=== PATIENT | male | born 1930 | race Caucasian/White ===

== ENCOUNTER 2018-08-17 19:34 | Inpatient (IN) ==
[2018-08-17] MEDS ORDERED: ONDANSETRON 4 MG/2 ML VIAL IV STA (20:06)
[2018-08-17] MEDS ORDERED: ASPIRIN 300 MG SUPP RECTAL STA (20:06)
[2018-08-17] MEDS ORDERED: DILTIAZEM 50 MG/10 ML VIAL IV STA (20:06)
[2018-08-17] MEDS ORDERED: DILTIAZEM INJ 100 MG in SODIUM CHLORIDE 0.9% 100 ML IV SCH ×2 (20:30→22:00)
[2018-08-17 20:37] LABS: Basophils # 0.1 10*3/uL (0.0-0.2); Basophils % 0.6 % (0.0-0.8); Eosinophils # 0.1 10*3/uL (0.0-0.87); Eosinophils % 1.1 % (0.00-10.9); Hematocrit 50.8 VOL% (42.0-52.0); Hemoglobin 17.8 GM/DL (14.0-18.0); Immature Granulocytes % 0.5 %; Immature Granulocytes Absolute 0.07 #; Lymphocytes # 2.1 10*3/uL (1.4-4.0); Lymphocytes % 16.1 % (21.2-54.2); Mean Corpuscular Hemoglobin 32 PG (27-34); Mean Corpuscular Volume 92.5 FL (87-102); Mean Platelet Volume 9.4 FL (9.6-12.0); Monocytes # 0.9 10*3/uL (0.11-0.8); Neutrophils # 9.6 10*3/uL (1.4-7.4); Neutrophils % 74.7 % (38.7-73.9); Platelet Count 196 T/CUMM (130-400); Red Blood Count 5.49 MC/CUMM (3.8-5.5); Red Cell Distribution Width 12.7 % (9.3-17.3); White Blood Count 12.9 T/CUMM (4-12)
[2018-08-17] MEDS ORDERED: DILTIAZEM 25 MG/5 ML VIAL IV ONE (20:39)
[2018-08-17 20:44] LABS: Apearance,Urine CLEAR (Clear); Bilirubin,Urine Negative (Negative); Blood, Urine Small mg/dL (Negative); Glucose,Urine (UA) Negative (Negative); Ketones,Urine 5 mg/dL (Negative); Nitrite,Urine Negative (Negative); Protein,Urine 30 MG/DL; RBC,Urine 1 /HPF (0-4); Urine Color Straw (Yellow); Urine Specific Gravity 1.008 (1.001-1.035); Urine Urobilinogen < 2.0 EU/DL (0.2-1.0); WBC,Urine <1 /HPF (0-6)
[2018-08-17 20:53] LABS: INR 1.2; PT Patient Result 12.2 SECS; Partial Thromboplastin Time 24.7 SECS (0-40)
[2018-08-17 20:55] LABS: Barbiturates Screen,Urine Negative (Negative); Benzodiazepines Screen,Urine Negative (Negative); Cannabinoid Screen,Urine Negative (Negative); Opiate Screen,Urine Negative (Negative); Phencyclidine Screen,Urine Negative (Negative)
[2018-08-17 21:05] LABS: Alanine Aminotransferase 26 U/L (16-61); Alkaline Phosphatase 65 U/L (45-117); Aspartate Amino Transferase 20 U/L (0-37); Blood Urea Nitrogen 12 MG/DL (7-18); Calcium 9.2 MG/DL (8.5-10.1); Glucose 114 MG/DL (74-106); Osmolality,Calculated 281.3 MOS/KG (273-304); Potassium 3.7 MMOL/L (3.5-5.1); Sodium 141 MMOL/L (136-145); Total Protein 7.2 G/DL (6.4-8.3)
[2018-08-17] MEDS ORDERED: MORPHINE 4 MG/1 ML VIAL IV PRN (21:55)
[2018-08-17] MEDS ORDERED: ZALEPLON 5 MG CAPSULE PO PRN (21:55)
[2018-08-17] MEDS ORDERED: diphenhydrAMINE CAP 25 MG CAPSULE PO PRN (21:55)
[2018-08-17] MEDS ORDERED: ONDANSETRON 4 MG/2 ML VIAL IV PRN (21:55)
[2018-08-17] MEDS ORDERED: ACETAMINOPHEN 325 MG TABLET PO PRN (21:55)
[2018-08-17] MEDS ORDERED: PROMETHAZINE 25 MG/1 ML VIAL IM PRN (21:55)
[2018-08-17] MEDS ORDERED: NICOTINE 21 MG/24 HR PATCH TRANSDERM PRN (21:55)
[2018-08-17] MEDS ORDERED: LACTULOSE 20 GM/30 ML UDCUP PO PRN (21:55)
[2018-08-17] MEDS ORDERED: ENOXAPARIN 40 MG/0.4 ML SYRINGE SUBCUT SCH ×2 (22:00→22:30)
[2018-08-17] MEDS ORDERED: ENOXAPARIN 100 MG/ML SYRINGE SUBCUT STA (22:07)
[2018-08-17] MEDS ORDERED: ENOXAPARIN 80 MG/0.8 ML SYRINGE SUBCUT SCH (23:00)
[2018-08-17] MEDS: SODIUM CHLORIDE 0.9% 1,000 ML IV SCH (23:45)
[2018-08-18 01:27] LABS: Basophils # 0.1 10*3/uL (0.0-0.2); Basophils % 0.8 % (0.0-0.8); Eosinophils # 0.2 10*3/uL (0.0-0.87); Eosinophils % 1.2 % (0.00-10.9); Hematocrit 50.9 VOL% (42.0-52.0); Hemoglobin 17.6 GM/DL (14.0-18.0); Immature Granulocytes % 0.7 %; Lymphocytes # 4.3 10*3/uL (1.4-4.0); Lymphocytes % 29.9 % (21.2-54.2); Mean Corpuscular HGB Conc 34.6 GM/DL (32-36); Mean Corpuscular Hemoglobin 32 PG (27-34); Mean Corpuscular Volume 93.6 FL (87-102); Mean Platelet Volume 10.4 FL (9.6-12.0); Monocytes # 1.3 10*3/uL (0.11-0.8); Monocytes % 8.8 % (1.7-12.7); Neutrophils # 8.5 10*3/uL (1.4-7.4); Neutrophils % 58.6 % (38.7-73.9); Platelet Count 240 T/CUMM (130-400); Red Blood Count 5.44 MC/CUMM (3.8-5.5); White Blood Count 14.4 T/CUMM (4-12)
[2018-08-18 03:32] LABS: Albumin 3.6 G/DL (3.4-5.0); Bilirubin,Total 0.9 MG/DL (0.2-1.0); Calcium 9.1 MG/DL (8.5-10.1); Total Protein 6.9 G/DL (6.4-8.3)
[2018-08-18 03:33] LABS: Osmolality,Calculated 281.1 MOS/KG (273-304); Potassium 3.5 MMOL/L (3.5-5.1)
[2018-08-18 04:00] LABS: Risk Ratio 4.36; Thyroid Stimulating Hormone 3.69 uIU/ml (0.358-3.74); VLDL CHOLESTEROL 20.8 MG/DL
[2018-08-18 04:04] LABS: Troponin I 0.22 NG/ML (0.00-0.045)
[2018-08-18] MEDS ORDERED: ATORVASTATIN 40 MG TABLET PO SCH (09:00)
[2018-08-18] MEDS ORDERED: ASPIRIN EC 81 MG TABLET PO SCH (09:00)
[2018-08-18] MEDS: APIXABAN 5 MG TABLET PO SCH ×2 (11:25→20:41)
[2018-08-18] MEDS: PANTOPRAZOLE 40 MG TABLET PO SCH (11:26)
[2018-08-18] MEDS: ATORVASTATIN 20 MG TABLET PO SCH (11:27)
[2018-08-18] MEDS: SODIUM CHLORIDE 0.9% 1,000 ML IV SCH (11:34)
[2018-08-18 12:19] LABS: Troponin I 0.081 NG/ML (0.00-0.045)
[2018-08-18] MEDS ORDERED: dilTIAZem Drip 125 MG/125 ML PREMIX IV SCH (12:30)
[2018-08-18] MEDS: TAMSULOSIN 0.4 MG CAPSULE PO SCH (15:45)
[2018-08-18] MEDS: PHENAZOPYRIDINE 95 MG TABLET PO SCH (16:22)
[2018-08-18] MEDS: MELATONIN 3 MG TABLET PO SCH (20:41)
[2018-08-19] MEDS: SODIUM CHLORIDE 0.9% 1,000 ML IV SCH (04:46)
[2018-08-19] MEDS: PANTOPRAZOLE 40 MG TABLET PO SCH (09:26)
[2018-08-19] MEDS: APIXABAN 5 MG TABLET PO SCH ×2 (09:27→21:29)
[2018-08-19] MEDS: PHENAZOPYRIDINE 95 MG TABLET PO SCH ×2 (09:27→17:37)
[2018-08-19] MEDS: DILTIAZEM CD 120 MG CAPSULE PO SCH (09:27)
[2018-08-19] MEDS: TAMSULOSIN 0.4 MG CAPSULE PO SCH (09:27)
[2018-08-19] MEDS: ATORVASTATIN 20 MG TABLET PO SCH (10:31)
[2018-08-19] MEDS: MELATONIN 3 MG TABLET PO SCH (21:29)
[2018-08-20 08:26] VITALS: BP 139/67
[2018-08-20] MEDS: DILTIAZEM CD 120 MG CAPSULE PO SCH (10:13)
[2018-08-20] MEDS: TAMSULOSIN 0.4 MG CAPSULE PO SCH (10:13)
[2018-08-20] MEDS: PANTOPRAZOLE 40 MG TABLET PO SCH (10:14)
[2018-08-20] MEDS: ATORVASTATIN 20 MG TABLET PO SCH (10:14)
[2018-08-20] MEDS: APIXABAN 5 MG TABLET PO SCH (10:14)
== END 2018-08-20 11:43 | DRG 65 ==
LOC: EDBD → EDUNIT# → N.ED 19:34 → N.EDINP 21:55 → SUATTDRO 21:55 → N.TELES 22:54
PROVIDERS: ADMIT Internal Medicine; ATTEND Hospitalist

== ENCOUNTER 2018-12-14 15:52 | Inpatient (IN) ==
[2018-12-14] MEDS ORDERED: DILTIAZEM 50 MG/10 ML VIAL IV STA (16:50)
[2018-12-14] MEDS: dilTIAZem Drip 125 MG/125 ML PREMIX IV SCH (17:07)
[2018-12-14 17:10] LABS: Albumin 3.7 G/DL (3.4-5.0); Bilirubin,Total 1.1 MG/DL (0.2-1.0); Calcium 8.8 MG/DL (8.5-10.1); Osmolality,Calculated 277.4 MOS/KG (273-304); Total Protein 6.8 G/DL (6.4-8.3)
[2018-12-14] MEDS ORDERED: LEVOFLOXACIN INJ 500 MG in PREMIX 1 EACH IV STA (17:37)
[2018-12-14] MEDS ORDERED: ACETAMINOPHEN 325 MG TABLET PO PRN (18:27)
[2018-12-14 20:19] LABS: Basophils # 0.1 10*3/uL (0.0-0.2); Basophils % 0.8 % (0.0-0.8); Eosinophils # 0.2 10*3/uL (0.0-0.87); Eosinophils % 1.8 % (0.00-10.9); Hematocrit 46.7 VOL% (42.0-52.0); Hemoglobin 15.4 GM/DL (14.0-18.0); Immature Granulocytes % 0.4 %; Immature Granulocytes Absolute 0.04 #; Lymphocytes # 3.7 10*3/uL (1.4-4.0); Lymphocytes % 32.9 % (21.2-54.2); Mean Corpuscular Hemoglobin 32 PG (27-34); Mean Corpuscular Volume 96.5 FL (87-102); Monocytes # 1.2 10*3/uL (0.11-0.8); Monocytes % 10.7 % (1.7-12.7); Neutrophils % 53.4 % (38.7-73.9); Platelet Count 207 T/CUMM (130-400); Red Blood Count 4.84 MC/CUMM (3.8-5.5); Red Cell Distribution Width 13.2 % (9.3-17.3); White Blood Count 11.2 T/CUMM (4-12)
[2018-12-14] MEDS: APIXABAN 5 MG TABLET PO SCH (21:07)
[2018-12-14] MEDS: ATORVASTATIN 80 MG TABLET PO SCH (21:07)
[2018-12-14] MEDS: MELATONIN 3 MG TABLET PO SCH (21:07)
[2018-12-15 01:12] LABS: Apearance,Urine CLEAR (Clear); Bilirubin,Urine Negative (Negative); Blood, Urine Small mg/dL (Negative); Glucose,Urine (UA) Negative (Negative); Ketones,Urine 5 mg/dL (Negative); Mucus,Urine Occasional /LPF (Occasional); Nitrite,Urine Negative (Negative); Protein,Urine Negative; RBC,Urine 1 /HPF (0-4); Urine Color Yellow (Yellow); Urine Specific Gravity 1.013 (1.001-1.035); Urine Urobilinogen < 2.0 EU/DL (0.2-1.0); WBC,Urine 5 /HPF (0-6)
[2018-12-15 04:06] LABS: Basophils # 0.1 10*3/uL (0.0-0.2); Basophils % 0.6 % (0.0-0.8); Eosinophils # 0.3 10*3/uL (0.0-0.87); Hematocrit 44.8 VOL% (42.0-52.0); Hemoglobin 14.6 GM/DL (14.0-18.0); Immature Granulocytes % 0.3 %; Immature Granulocytes Absolute 0.03 #; Lymphocytes # 3.4 10*3/uL (1.4-4.0); Lymphocytes % 36.2 % (21.2-54.2); Mean Corpuscular HGB Conc 32.6 GM/DL (32-36); Mean Corpuscular Hemoglobin 31 PG (27-34); Mean Corpuscular Volume 95.9 FL (87-102); Mean Platelet Volume 10.2 FL (9.6-12.0); Monocytes # 1.1 10*3/uL (0.11-0.8); Neutrophils # 4.5 10*3/uL (1.4-7.4); Neutrophils % 47.9 % (38.7-73.9); Platelet Count 191 T/CUMM (130-400); Red Blood Count 4.67 MC/CUMM (3.8-5.5); Red Cell Distribution Width 13.2 % (9.3-17.3); White Blood Count 9.4 T/CUMM (4-12)
[2018-12-15 04:28] LABS: Calcium 8.5 MG/DL (8.5-10.1); Osmolality,Calculated 279.3 MOS/KG (273-304); Risk Ratio 2.5; Thyroid Stimulating Hormone 4.51 uIU/ml (0.358-3.74); VLDL CHOLESTEROL 12.8 MG/DL
[2018-12-15] MEDS: APIXABAN 5 MG TABLET PO SCH ×2 (08:38→21:56)
[2018-12-15] MEDS: TAMSULOSIN 0.4 MG CAPSULE PO SCH (08:38)
[2018-12-15] MEDS ORDERED: FUROSEMIDE 40 MG/4 ML VIAL IV ONE (11:35)
[2018-12-15] MEDS ORDERED: POTASSIUM CHLORIDE 20 MEQ TABLET PO ONE (11:35)
[2018-12-15] MEDS: DILTIAZEM CD 120 MG CAPSULE PO SCH (12:03)
[2018-12-15] MEDS: LEVOFLOXACIN INJ 750 MG in PREMIX 1 EACH IV SCH (18:13)
[2018-12-15] MEDS ORDERED: ZALEPLON 5 MG CAPSULE PO PRN (20:09)
[2018-12-15] MEDS: ATORVASTATIN 80 MG TABLET PO SCH (21:56)
[2018-12-15] MEDS: METOPROLOL TARTRATE 25 MG TABLET PO SCH (21:56)
[2018-12-15] MEDS: MELATONIN 3 MG TABLET PO SCH (21:56)
[2018-12-16 03:13] LABS: Basophils # 0.1 10*3/uL (0.0-0.2); Basophils % 0.5 % (0.0-0.8); Eosinophils # 0.2 10*3/uL (0.0-0.87); Eosinophils % 2.2 % (0.00-10.9); Hematocrit 45.5 VOL% (42.0-52.0); Hemoglobin 15.1 GM/DL (14.0-18.0); Immature Granulocytes % 0.5 %; Immature Granulocytes Absolute 0.05 #; Lymphocytes # 2.9 10*3/uL (1.4-4.0); Lymphocytes % 26.2 % (21.2-54.2); Mean Corpuscular HGB Conc 33.2 GM/DL (32-36); Mean Corpuscular Hemoglobin 32 PG (27-34); Mean Corpuscular Volume 95.8 FL (87-102); Mean Platelet Volume 10.2 FL (9.6-12.0); Monocytes # 1.2 10*3/uL (0.11-0.8); Monocytes % 10.8 % (1.7-12.7); Neutrophils # 6.6 10*3/uL (1.4-7.4); Neutrophils % 59.8 % (38.7-73.9); Platelet Count 197 T/CUMM (130-400); Red Blood Count 4.75 MC/CUMM (3.8-5.5); Red Cell Distribution Width 13.2 % (9.3-17.3); White Blood Count 11.1 T/CUMM (4-12)
[2018-12-16 03:29] LABS: Calcium 8.8 MG/DL (8.5-10.1); Osmolality,Calculated 282.1 MOS/KG (273-304); Potassium 3.9 MMOL/L (3.5-5.1)
[2018-12-16] MEDS: DILTIAZEM CD 120 MG CAPSULE PO SCH (10:06)
[2018-12-16] MEDS: APIXABAN 5 MG TABLET PO SCH ×2 (10:06→21:14)
[2018-12-16] MEDS: TAMSULOSIN 0.4 MG CAPSULE PO SCH (10:07)
[2018-12-16] MEDS ORDERED: SODIUM CHLORIDE 0.9% 1,000 ML IV SCH (11:00)
[2018-12-16] MEDS: METOPROLOL TARTRATE 25 MG TABLET PO SCH ×2 (13:31→21:16)
[2018-12-16] MEDS: LEVOFLOXACIN INJ 750 MG in PREMIX 1 EACH IV SCH (17:27)
[2018-12-16] MEDS: ATORVASTATIN 80 MG TABLET PO SCH (21:16)
[2018-12-16] MEDS: MELATONIN 3 MG TABLET PO SCH (21:16)
[2018-12-17] MEDS: dilTIAZem Drip 125 MG/125 ML PREMIX IV SCH (03:27)
[2018-12-17 05:18] LABS: Basophils # 0.1 10*3/uL (0.0-0.2); Basophils % 0.7 % (0.0-0.8); Eosinophils # 0.4 10*3/uL (0.0-0.87); Hematocrit 44.6 VOL% (42.0-52.0); Immature Granulocytes % 0.4 %; Immature Granulocytes Absolute 0.05 #; Lymphocytes % 34.2 % (21.2-54.2); Mean Corpuscular HGB Conc 33.6 GM/DL (32-36); Mean Corpuscular Hemoglobin 32 PG (27-34); Mean Corpuscular Volume 95.3 FL (87-102); Mean Platelet Volume 10.4 FL (9.6-12.0); Monocytes # 1.2 10*3/uL (0.11-0.8); Monocytes % 9.9 % (1.7-12.7); Neutrophils % 51.8 % (38.7-73.9); Platelet Count 191 T/CUMM (130-400); Red Blood Count 4.68 MC/CUMM (3.8-5.5); Red Cell Distribution Width 13.3 % (9.3-17.3); White Blood Count 11.6 T/CUMM (4-12)
[2018-12-17 05:47] LABS: Calcium 8.6 MG/DL (8.5-10.1); Osmolality,Calculated 284.1 MOS/KG (273-304); Potassium 3.8 MMOL/L (3.5-5.1)
[2018-12-17] MEDS: TAMSULOSIN 0.4 MG CAPSULE PO SCH (09:32)
[2018-12-17] MEDS: METOPROLOL TARTRATE 25 MG TABLET PO SCH ×2 (09:32→21:28)
[2018-12-17] MEDS: APIXABAN 5 MG TABLET PO SCH ×2 (09:32→21:27)
[2018-12-17] MEDS: DILTIAZEM CD 120 MG CAPSULE PO SCH (11:46)
[2018-12-17] MEDS ORDERED: FUROSEMIDE 40 MG/4 ML VIAL IV ONE (15:57)
[2018-12-17] MEDS: ALBUTEROL 1.25 MG/3 ML NEB RESP TX SCH ×2 (16:09→19:45)
[2018-12-17] MEDS: LEVOFLOXACIN INJ 750 MG in PREMIX 1 EACH IV SCH (17:51)
[2018-12-17] MEDS: CITALOPRAM 20 MG TABLET PO SCH (21:26)
[2018-12-17] MEDS: MELATONIN 3 MG TABLET PO SCH (21:27)
[2018-12-17] MEDS: ATORVASTATIN 80 MG TABLET PO SCH (21:27)
[2018-12-18] MEDS: ALBUTEROL 1.25 MG/3 ML NEB RESP TX SCH ×4 (01:27→19:42)
[2018-12-18] MEDS: DILTIAZEM CD 120 MG CAPSULE PO SCH (08:10)
[2018-12-18] MEDS: APIXABAN 5 MG TABLET PO SCH ×2 (08:11→21:29)
[2018-12-18] MEDS: METOPROLOL TARTRATE 25 MG TABLET PO SCH ×2 (08:11→21:29)
[2018-12-18] MEDS: TAMSULOSIN 0.4 MG CAPSULE PO SCH (08:11)
[2018-12-18] MEDS: LEVOFLOXACIN INJ 750 MG in PREMIX 1 EACH IV SCH (17:05)
[2018-12-18] MEDS: ATORVASTATIN 80 MG TABLET PO SCH (21:29)
[2018-12-18] MEDS: CITALOPRAM 20 MG TABLET PO SCH (21:29)
[2018-12-18] MEDS: MELATONIN 3 MG TABLET PO SCH (21:29)
[2018-12-19] MEDS: ALBUTEROL 1.25 MG/3 ML NEB RESP TX SCH ×4 (00:26→19:16)
[2018-12-19] MEDS: TAMSULOSIN 0.4 MG CAPSULE PO SCH (08:55)
[2018-12-19] MEDS: METOPROLOL TARTRATE 25 MG TABLET PO SCH ×2 (08:55→20:45)
[2018-12-19] MEDS: APIXABAN 5 MG TABLET PO SCH ×2 (08:55→20:45)
[2018-12-19] MEDS: DILTIAZEM CD 120 MG CAPSULE PO SCH (08:55)
[2018-12-19] MEDS: LEVOFLOXACIN INJ 750 MG in PREMIX 1 EACH IV SCH (17:46)
[2018-12-19] MEDS: MELATONIN 3 MG TABLET PO SCH (20:45)
[2018-12-19] MEDS: CITALOPRAM 20 MG TABLET PO SCH (20:45)
[2018-12-19] MEDS: ATORVASTATIN 80 MG TABLET PO SCH (20:45)
[2018-12-20] MEDS: ALBUTEROL 1.25 MG/3 ML NEB RESP TX SCH ×4 (01:59→19:45)
[2018-12-20] MEDS: APIXABAN 5 MG TABLET PO SCH (09:39)
[2018-12-20] MEDS: TAMSULOSIN 0.4 MG CAPSULE PO SCH (09:39)
[2018-12-20] MEDS ORDERED: FUROSEMIDE 20 MG/2 ML VIAL IV ONE (09:42)
[2018-12-20] MEDS: METOPROLOL TARTRATE 50 MG TABLET PO SCH ×2 (09:45→21:11)
[2018-12-20] MEDS: DILTIAZEM CD 120 MG CAPSULE PO SCH (13:02)
[2018-12-20] MEDS: LEVOFLOXACIN INJ 750 MG in PREMIX 1 EACH IV SCH (18:28)
[2018-12-20] MEDS: MELATONIN 3 MG TABLET PO SCH (21:11)
[2018-12-20] MEDS: CITALOPRAM 20 MG TABLET PO SCH (21:11)
[2018-12-20] MEDS: ATORVASTATIN 80 MG TABLET PO SCH (21:11)
[2018-12-21] MEDS: ALBUTEROL 1.25 MG/3 ML NEB RESP TX SCH ×4 (00:36→20:29)
[2018-12-21 05:22] LABS: Basophils # 0.1 10*3/uL (0.0-0.2); Basophils % 0.7 % (0.0-0.8); Eosinophils # 0.3 10*3/uL (0.0-0.87); Eosinophils % 2.8 % (0.00-10.9); Hematocrit 44.3 VOL% (42.0-52.0); Immature Granulocytes % 0.3 %; Immature Granulocytes Absolute 0.03 #; Lymphocytes # 3.6 10*3/uL (1.4-4.0); Lymphocytes % 35.8 % (21.2-54.2); Mean Corpuscular HGB Conc 33.9 GM/DL (32-36); Mean Corpuscular Hemoglobin 32 PG (27-34); Mean Corpuscular Volume 94.7 FL (87-102); Mean Platelet Volume 10.5 FL (9.6-12.0); Monocytes # 1.1 10*3/uL (0.11-0.8); Monocytes % 11.3 % (1.7-12.7); Neutrophils # 4.9 10*3/uL (1.4-7.4); Neutrophils % 49.1 % (38.7-73.9); Platelet Count 177 T/CUMM (130-400); Red Blood Count 4.68 MC/CUMM (3.8-5.5); Red Cell Distribution Width 13.2 % (9.3-17.3)
[2018-12-21 05:58] LABS: Calcium 8.7 MG/DL (8.5-10.1); Osmolality,Calculated 280.4 MOS/KG (273-304); Potassium 3.7 MMOL/L (3.5-5.1)
[2018-12-21] MEDS: DILTIAZEM CD 120 MG CAPSULE PO SCH (09:55)
[2018-12-21] MEDS: FUROSEMIDE 20 MG TABLET PO SCH ×2 (09:59→17:43)
[2018-12-21] MEDS: TAMSULOSIN 0.4 MG CAPSULE PO SCH (09:59)
[2018-12-21] MEDS: METOPROLOL TARTRATE 50 MG TABLET PO SCH ×2 (09:59→22:04)
[2018-12-21 12:51] LABS: Glucose,Pleural Fluid 95 MG/DL; LDH,Body Fluid 72 U/L; Total Protein,Body Fluid < 2.0 G/DL
[2018-12-21] MEDS: ASCORBIC ACID 500 MG TABLET PO SCH ×2 (17:42→22:05)
[2018-12-21] MEDS: POTASSIUM CHLORIDE 20 MEQ/15 ML UDCUP PO SCH (17:42)
[2018-12-21] MEDS: LEVOFLOXACIN INJ 750 MG in PREMIX 1 EACH IV SCH (18:20)
[2018-12-21 21:04] LABS: RBC,Pleural Fluid 46 T/CUMM
[2018-12-21 21:06] LABS: Lymphocytes,Pleural Fluid 84 %; Monocytes,Pleural Fluid 11 %; Neutrophils,Pleural Fluid 5 %
[2018-12-21] MEDS: APIXABAN 5 MG TABLET PO SCH (22:03)
[2018-12-21] MEDS: ATORVASTATIN 80 MG TABLET PO SCH (22:04)
[2018-12-21] MEDS: MELATONIN 3 MG TABLET PO SCH (22:04)
[2018-12-21] MEDS: CITALOPRAM 20 MG TABLET PO SCH (22:04)
[2018-12-22] MEDS: ALBUTEROL 1.25 MG/3 ML NEB RESP TX SCH ×4 (00:43→19:38)
[2018-12-22 05:34] LABS: Basophils # 0.1 10*3/uL (0.0-0.2); Basophils % 0.6 % (0.0-0.8); Eosinophils # 0.3 10*3/uL (0.0-0.87); Eosinophils % 2.2 % (0.00-10.9); Hemoglobin 15.8 GM/DL (14.0-18.0); Immature Granulocytes % 0.5 %; Immature Granulocytes Absolute 0.06 #; Lymphocytes # 4.3 10*3/uL (1.4-4.0); Lymphocytes % 33.6 % (21.2-54.2); Mean Corpuscular HGB Conc 33.6 GM/DL (32-36); Mean Corpuscular Hemoglobin 32 PG (27-34); Mean Corpuscular Volume 95.1 FL (87-102); Mean Platelet Volume 10.6 FL (9.6-12.0); Monocytes # 1.3 10*3/uL (0.11-0.8); Monocytes % 10.2 % (1.7-12.7); Neutrophils # 6.7 10*3/uL (1.4-7.4); Neutrophils % 52.9 % (38.7-73.9); Platelet Count 189 T/CUMM (130-400); Red Blood Count 4.94 MC/CUMM (3.8-5.5); Red Cell Distribution Width 13.2 % (9.3-17.3); White Blood Count 12.6 T/CUMM (4-12)
[2018-12-22 05:42] LABS: Calcium 8.7 MG/DL (8.5-10.1); Osmolality,Calculated 282.3 MOS/KG (273-304); Potassium 4.2 MMOL/L (3.5-5.1)
[2018-12-22] MEDS ORDERED: FUROSEMIDE 40 MG/4 ML VIAL IV ONE (08:37)
[2018-12-22] MEDS: ASCORBIC ACID 500 MG TABLET PO SCH ×2 (10:06→21:42)
[2018-12-22] MEDS: DILTIAZEM CD 120 MG CAPSULE PO SCH (10:07)
[2018-12-22] MEDS: TAMSULOSIN 0.4 MG CAPSULE PO SCH (10:08)
[2018-12-22] MEDS: POTASSIUM CHLORIDE 20 MEQ/15 ML UDCUP PO SCH (10:08)
[2018-12-22] MEDS: METOPROLOL TARTRATE 50 MG TABLET PO SCH ×2 (10:08→21:42)
[2018-12-22] MEDS: APIXABAN 5 MG TABLET PO SCH ×2 (10:08→21:42)
[2018-12-22] MEDS: LEVOFLOXACIN INJ 750 MG in PREMIX 1 EACH IV SCH (18:32)
[2018-12-22] MEDS: ATORVASTATIN 80 MG TABLET PO SCH (21:41)
[2018-12-22] MEDS: CITALOPRAM 20 MG TABLET PO SCH (21:41)
[2018-12-22] MEDS: MELATONIN 3 MG TABLET PO SCH (21:42)
[2018-12-23] MEDS: ALBUTEROL 1.25 MG/3 ML NEB RESP TX SCH ×2 (00:27→07:48)
[2018-12-23 05:12] LABS: Basophils # 0.1 10*3/uL (0.0-0.2); Basophils % 0.5 % (0.0-0.8); Eosinophils # 0.3 10*3/uL (0.0-0.87); Eosinophils % 2.8 % (0.00-10.9); Hematocrit 44.6 VOL% (42.0-52.0); Hemoglobin 14.9 GM/DL (14.0-18.0); Immature Granulocytes % 0.4 %; Immature Granulocytes Absolute 0.04 #; Lymphocytes # 3.3 10*3/uL (1.4-4.0); Lymphocytes % 33.4 % (21.2-54.2); Mean Corpuscular HGB Conc 33.4 GM/DL (32-36); Mean Corpuscular Hemoglobin 32 PG (27-34); Mean Corpuscular Volume 96.1 FL (87-102); Mean Platelet Volume 10.4 FL (9.6-12.0); Monocytes # 1.1 10*3/uL (0.11-0.8); Monocytes % 11.4 % (1.7-12.7); Neutrophils # 5.2 10*3/uL (1.4-7.4); Neutrophils % 51.5 % (38.7-73.9); Platelet Count 157 T/CUMM (130-400); Red Blood Count 4.64 MC/CUMM (3.8-5.5); Red Cell Distribution Width 13.2 % (9.3-17.3)
[2018-12-23 05:22] LABS: Calcium 8.7 MG/DL (8.5-10.1); Osmolality,Calculated 281.4 MOS/KG (273-304); Potassium 3.7 MMOL/L (3.5-5.1)
[2018-12-23] MEDS: APIXABAN 5 MG TABLET PO SCH (08:53)
[2018-12-23] MEDS: ASCORBIC ACID 500 MG TABLET PO SCH (08:53)
[2018-12-23] MEDS: TAMSULOSIN 0.4 MG CAPSULE PO SCH (08:53)
[2018-12-23] MEDS: POTASSIUM CHLORIDE 20 MEQ/15 ML UDCUP PO SCH (08:53)
[2018-12-23] MEDS: METOPROLOL TARTRATE 50 MG TABLET PO SCH (08:53)
[2018-12-23] MEDS ORDERED: FUROSEMIDE 40 MG TABLET PO SCH (09:00)
[2018-12-23 12:20] VITALS: BP 93/66
== END 2018-12-23 12:15 | disposition home health service (06) | DRG 291 ==
LOC: EDBD → EDUNIT# → N.ED 15:52 → SUATTDRO 18:26 → N.EDINP 18:26 → N.TELEN 19:00
PROVIDERS: ADMIT Internal Medicine; ATTEND Internal Medicine

== ENCOUNTER 2019-01-31 09:03 | Inpatient (IN) ==
[2019-01-31] MEDS ORDERED: ALBUTEROL/IPRATROPIUM 3 ML NEB RESP TX STA (09:25)
[2019-01-31] MEDS ORDERED: ONDANSETRON 4 MG/2 ML VIAL IV STA (09:25)
[2019-01-31] MEDS ORDERED: PANTOPRAZOLE 40 MG VIAL IV STA (09:25)
[2019-01-31 09:34] LABS: Basophils # 0.1 10*3/uL (0.0-0.2); Basophils % 0.8 % (0.0-0.8); Eosinophils # 0.1 10*3/uL (0.0-0.87); Eosinophils % 0.9 % (0.00-10.9); Hematocrit 54.1 VOL% (42.0-52.0); Hemoglobin 17.8 GM/DL (14.0-18.0); Immature Granulocytes % 0.2 %; Immature Granulocytes Absolute 0.02 #; Lymphocytes # 3.5 10*3/uL (1.4-4.0); Lymphocytes % 37.8 % (21.2-54.2); Mean Corpuscular HGB Conc 32.9 GM/DL (32-36); Mean Corpuscular Hemoglobin 32 PG (27-34); Mean Corpuscular Volume 96.4 FL (87-102); Mean Platelet Volume 11.5 FL (9.6-12.0); Neutrophils # 4.6 10*3/uL (1.4-7.4); Neutrophils % 49.3 % (38.7-73.9); Platelet Count 151 T/CUMM (130-400); Red Blood Count 5.61 MC/CUMM (3.8-5.5); Red Cell Distribution Width 14.2 % (9.3-17.3); White Blood Count 9.3 T/CUMM (4-12)
[2019-01-31 09:44] LABS: INR 1.5; PT Patient Result 16.5 SECS; Partial Thromboplastin Time 31.1 SECS (0-40)
[2019-01-31 09:54] LABS: Alanine Aminotransferase 26 U/L (16-61); Albumin 3.6 G/DL (3.4-5.0); Alkaline Phosphatase 61 U/L (45-117); Amylase 31 U/L (25-115); Aspartate Amino Transferase 24 U/L (0-37); Blood Urea Nitrogen 24 MG/DL (7-18); Glucose 95 MG/DL (74-106); Osmolality,Calculated 286.1 MOS/KG (273-304); Potassium 3.8 MMOL/L (3.5-5.1); Sodium 142 MMOL/L (136-145); Total Protein 6.7 G/DL (6.4-8.3)
[2019-01-31] MEDS ORDERED: FUROSEMIDE 40 MG/4 ML VIAL IV STA (10:17)
[2019-01-31] MEDS ORDERED: ACETAMINOPHEN 325 MG TABLET PO PRN (11:09)
[2019-01-31 12:46] LABS: Apearance,Urine CLEAR (Clear); Bilirubin,Urine Negative (Negative); Blood, Urine Small mg/dL (Negative); Glucose,Urine (UA) Negative (Negative); Hyaline Casts,Urine 8 /LPF (0-3); Ketones,Urine Negative (Negative); Mucus,Urine Occasional /LPF (Occasional); Nitrite,Urine Negative (Negative); Protein,Urine Negative; RBC,Urine 1 /HPF (0-4); Urine Color Yellow (Yellow); Urine Specific Gravity 1.008 (1.001-1.035); Urine Urobilinogen < 2.0 EU/DL (0.2-1.0); WBC,Urine 2 /HPF (0-6)
[2019-01-31] MEDS ORDERED: TAMSULOSIN 0.4 MG CAPSULE PO SCH (21:00)
[2019-01-31] MEDS: CITALOPRAM 20 MG TABLET PO SCH (22:30)
[2019-01-31] MEDS: METOPROLOL TARTRATE 50 MG TABLET PO SCH (22:32)
[2019-01-31] MEDS: APIXABAN 5 MG TABLET PO SCH (22:41)
[2019-01-31] MEDS: FUROSEMIDE 40 MG/4 ML VIAL IV SCH (22:42)
[2019-02-01 05:39] LABS: Basophils # 0.1 10*3/uL (0.0-0.2); Basophils % 0.6 % (0.0-0.8); Eosinophils # 0.2 10*3/uL (0.0-0.87); Eosinophils % 2.1 % (0.00-10.9); Hematocrit 51.1 VOL% (42.0-52.0); Hemoglobin 16.6 GM/DL (14.0-18.0); Immature Granulocytes % 0.3 %; Immature Granulocytes Absolute 0.03 #; Lymphocytes # 3.9 10*3/uL (1.4-4.0); Lymphocytes % 39.5 % (21.2-54.2); Mean Corpuscular HGB Conc 32.5 GM/DL (32-36); Mean Corpuscular Hemoglobin 32 PG (27-34); Mean Corpuscular Volume 97.9 FL (87-102); Mean Platelet Volume 11.8 FL (9.6-12.0); Monocytes # 1.2 10*3/uL (0.11-0.8); Neutrophils # 4.5 10*3/uL (1.4-7.4); Neutrophils % 45.5 % (38.7-73.9); Platelet Count 136 T/CUMM (130-400); Red Blood Count 5.22 MC/CUMM (3.8-5.5); White Blood Count 9.9 T/CUMM (4-12)
[2019-02-01 05:44] LABS: Calcium 8.3 MG/DL (8.5-10.1); Osmolality,Calculated 286.8 MOS/KG (273-304); Potassium 3.3 MMOL/L (3.5-5.1); Thyroid Stimulating Hormone 3.09 uIU/ml (0.358-3.74)
[2019-02-01] MEDS: FUROSEMIDE 40 MG/4 ML VIAL IV SCH (09:18)
[2019-02-01] MEDS ORDERED: metOLazone 2.5 MG TABLET PO ONE (12:06)
[2019-02-01] MEDS: APIXABAN 5 MG TABLET PO SCH ×2 (12:27→21:07)
[2019-02-01] MEDS: METOPROLOL TARTRATE 50 MG TABLET PO SCH (12:28)
[2019-02-01] MEDS: SPIRONOLACTONE 25 MG TABLET PO SCH (14:21)
[2019-02-01] MEDS ORDERED: FUROSEMIDE 40 MG/4 ML VIAL IV SCH (16:00)
[2019-02-01] MEDS: CITALOPRAM 20 MG TABLET PO SCH (21:07)
[2019-02-02 04:31] LABS: Basophils # 0.1 10*3/uL (0.0-0.2); Basophils % 0.5 % (0.0-0.8); Eosinophils # 0.2 10*3/uL (0.0-0.87); Eosinophils % 2.6 % (0.00-10.9); Hematocrit 49.6 VOL% (42.0-52.0); Hemoglobin 16.4 GM/DL (14.0-18.0); Immature Granulocytes % 0.2 %; Immature Granulocytes Absolute 0.02 #; Lymphocytes # 3.8 10*3/uL (1.4-4.0); Lymphocytes % 41.3 % (21.2-54.2); Mean Corpuscular HGB Conc 33.1 GM/DL (32-36); Mean Corpuscular Hemoglobin 32 PG (27-34); Mean Corpuscular Volume 97.3 FL (87-102); Mean Platelet Volume 11.3 FL (9.6-12.0); Monocytes # 1.1 10*3/uL (0.11-0.8); Monocytes % 11.8 % (1.7-12.7); Neutrophils % 43.6 % (38.7-73.9); Platelet Count 129 T/CUMM (130-400); White Blood Count 9.2 T/CUMM (4-12)
[2019-02-02 05:00] LABS: Calcium 8.3 MG/DL (8.5-10.1)
[2019-02-02] MEDS ORDERED: POTASSIUM CHLORIDE 20 MEQ TABLET PO ONE ×2 (08:00→10:00)
[2019-02-02] MEDS ORDERED: FUROSEMIDE 40 MG/4 ML VIAL IV SCH (09:00)
[2019-02-02] MEDS: FUROSEMIDE 40 MG/4 ML VIAL IV SCH (09:23)
[2019-02-02] MEDS: POTASSIUM CHLORIDE 20 MEQ TABLET PO SCH ×2 (09:23→20:31)
[2019-02-02] MEDS: MAGNESIUM OXIDE 400 MG TABLET PO SCH ×2 (09:23→20:31)
[2019-02-02] MEDS: APIXABAN 5 MG TABLET PO SCH ×2 (10:07→20:31)
[2019-02-02] MEDS: SPIRONOLACTONE 25 MG TABLET PO SCH (10:07)
[2019-02-02] MEDS: METOPROLOL TARTRATE 50 MG TABLET PO SCH (20:31)
[2019-02-02] MEDS: CITALOPRAM 20 MG TABLET PO SCH (20:31)
[2019-02-03 04:42] LABS: Basophils # 0.1 10*3/uL (0.0-0.2); Basophils % 0.7 % (0.0-0.8); Eosinophils # 0.2 10*3/uL (0.0-0.87); Eosinophils % 2.4 % (0.00-10.9); Hematocrit 50.8 VOL% (42.0-52.0); Hemoglobin 16.9 GM/DL (14.0-18.0); Immature Granulocytes % 0.3 %; Immature Granulocytes Absolute 0.03 #; Lymphocytes # 4.5 10*3/uL (1.4-4.0); Mean Corpuscular HGB Conc 33.3 GM/DL (32-36); Mean Corpuscular Hemoglobin 32 PG (27-34); Mean Corpuscular Volume 96.4 FL (87-102); Mean Platelet Volume 11.4 FL (9.6-12.0); Monocytes # 1.2 10*3/uL (0.11-0.8); Monocytes % 12.3 % (1.7-12.7); Neutrophils # 3.8 10*3/uL (1.4-7.4); Neutrophils % 38.3 % (38.7-73.9); Platelet Count 141 T/CUMM (130-400); Red Blood Count 5.27 MC/CUMM (3.8-5.5); Red Cell Distribution Width 14.1 % (9.3-17.3); White Blood Count 9.8 T/CUMM (4-12)
[2019-02-03 05:14] LABS: Calcium 8.8 MG/DL (8.5-10.1); Osmolality,Calculated 284.1 MOS/KG (273-304); Potassium 4.1 MMOL/L (3.5-5.1)
[2019-02-03 05:42] LABS: Atypical Lymphocytes Few; Eosinophils 5 % (0-10); Lymphocytes 39 % (20-55); Segmented Neutrophils 47 % (50-85); Total Cells Counted 100
[2019-02-03 05:43] LABS: Macrocytosis Slight
[2019-02-03 05:44] LABS: Platelet Estimate Adequate
[2019-02-03 07:44] VITALS: BP 100/76
[2019-02-03] MEDS: MAGNESIUM OXIDE 400 MG TABLET PO SCH (09:14)
[2019-02-03] MEDS: FUROSEMIDE 40 MG/4 ML VIAL IV SCH (09:14)
[2019-02-03] MEDS: POTASSIUM CHLORIDE 20 MEQ TABLET PO SCH (09:14)
[2019-02-03] MEDS: APIXABAN 5 MG TABLET PO SCH (09:14)
[2019-02-03] MEDS: METOPROLOL TARTRATE 50 MG TABLET PO SCH (09:14)
[2019-02-03] MEDS: SPIRONOLACTONE 25 MG TABLET PO SCH (09:14)
== END 2019-02-03 11:40 | disposition home or self-care (01) | DRG 292 ==
LOC: EDBD → EDUNIT# → N.ED 09:03 → N.EDINP 11:09 → N.2E 16:47
PROVIDERS: ADMIT Emergency Medicine; ATTEND Emergency Medicine